=== PATIENT | female | born 1990 | race Two or more races ===

== ENCOUNTER 2016-05-30 00:30 | Emergency (ER) | payer SELFPAY ==
[~2016-05-30] VITALS: Ht 170.2 cm; Wt 81.6 kg
[~2016-05-30 00:30] MED LIST: AMOX875T PO; HYDR-971 PO
[2016-05-30 00:50] VITALS: BP 172/90
[2016-05-30] MEDS ORDERED: HYDR15SO4 PO (01:08)
--- NOTE | 2016-05-30 01:09 | PHYS DOC ---
Past Medical History Past Medical History: No Pertinent History Past Surgical History: No Surgical History Alcohol Use: None Drug Use: None Adult General Chief Complaint Chief Complaint: SORE THROAT HPI HPI Patient is a 26 year old female comes emergency room with a complaint of atraumatic sore throat, fevers, chills and body aches with bilateral ear pain that began 3 days ago. Patient denies contact with anyone with similar symptoms. She denies any history of her nose and throat surgeries or complications. She denies antibiotic use, hospitalization or foreign travel within the past 90 days. Review of Systems Review of Systems Constitutional: Denies fever or chills [] Eyes: Denies change in visual acuity, redness, or eye pain [] HENT: Denies nasal congestion or sore throat [] Respiratory: Denies cough or shortness of breath [] Cardiovascular: No additional information not addressed in HPI [] GI: Denies abdominal pain, nausea, vomiting, bloody stools or diarrhea [] : Denies dysuria or hematuria [] Musculoskeletal: Denies back pain or joint pain [] Integument: Denies rash or skin lesions [] Neurologic: Denies headache, focal weakness or sensory changes [] Endocrine: Denies polyuria or polydipsia [] Allergies Allergies Allergies Coded Allergies Type Severity Reaction Last Updated Verified ibuprofen Allergy Intermediate Rash 11/25/15 Yes Physical Exam Physical Exam Constitutional: Well developed, well nourished, no acute distress, non-toxic appearance. HENT: Normocephalic, atraumatic, bilateral external ears normal, oropharynx moist, no oral exudates, nose normal. There is no trismus or hot potato speech. Posterior oropharynx shows tonsils 3/4 bilaterally. There are exudative plaques on the tonsils. There is no peritonsillar swelling or uvular deviation. Eyes: PERRLA, EOMI, conjunctiva normal, no discharge. [] Neck: Normal range of motion, no tenderness, supple, no stridor. There is bilateral anterior cervical lymphadenopathy. Cardiovascular:Heart rate regular rhythm, no murmur [] Lungs & Thorax: Bilateral breath sounds clear to auscultation [] Abdomen: Bowel sounds normal, soft, no tenderness, no masses, no pulsatile masses. [] Skin: Warm, dry, no erythema, no rash. [] Back: No tenderness, no CVA tenderness. [] Extremities: No tenderness, no cyanosis, no clubbing, ROM intact, no edema. [] Neurologic: Alert and oriented X 3, normal motor function, normal sensory function, no focal deficits noted. [] Psychologic: Affect normal, judgement normal, mood normal. [] EKG EKG [] Radiology/Procedures Radiology/Procedures [] Course & Med Decision Making Course & Med Decision Making Pertinent Labs and Imaging studies reviewed. (See chart for details) [] Dragon Disclaimer Dragon Disclaimer This electronic medical record was generated, in whole or in part, using a voice recognition dictation system. Departure Departure Impression: Primary Impression: Tonsillitis Disposition: HOME, SELF-CARE Condition: GOOD Referrals: NO PCP (PCP) Patient Instructions: Tonsillitis, [id number] Additional Instructions: 1. You received an antibiotic in the emergency room called Bicillin. This is the only antibiotic you need. 2. You also received a steroid called Decadron. This will get the swelling down in your tonsils. 3. Review the discharge instructions provided for self-care and reasons to return the emergency department. 4. Take the liquid pain medication as prescribed. It has acetaminophen in it, so don't take any additional acetaminophen. Scripts Hydrocodone Bit/Acetaminophen (Hydrocodone-Apap 7.5-325/15 Soln )15 Ml [id number] Ml PO PRN Q6HRS PRN PAIN #120 ML Ref 0 Prov:DONNA YIP 05/30/16 DONNA YIP May 30, 2016 01:09
[2016-05-30] MEDS ORDERED: PENICILLIN G BENZATHINE LA 1,200,000 UNIT/2 ML DISP.SYRIN. IM ONE (01:30)
[2016-05-30] MEDS ORDERED: ONDANSETRON ODT 4 MG TAB.RAPDIS PO ONE (01:30)
[2016-05-30] MEDS ORDERED: DEXAMETHASONE SOD PHOS 4 MG/ML VIAL PO ONE (01:30)
== END 2016-05-30 01:35 | disposition home or self-care (01) ==
LOC: ER 00:30
DX: J03.90 Acute tonsillitis, unspecified (principal); H92.03 Otalgia, bilateral; Z88.6 Allergy status to analgesic agent
CPT/HCPCS: 96372; 99283; J0561; J1100; Q0162